=== PATIENT | male | born 1935 | race Caucasian/White ===

== ENCOUNTER 2017-01-30 10:59 | Emergency (ER) | payer OTHER ==
[~2017-01-30] VITALS: Ht 185.4 cm; Wt 61.2 kg
[~2017-01-30 10:59] MED LIST: LEVO50TA7; METO25TA5 PO; SIMV-13; TERA5CAP42; WARF5TAB71
[2017-01-30] MEDS ORDERED: LIDOCAINE HCL 2% TOP JELLY 5ML TOP ONE ×2 (11:19→12:45)
[2017-01-30 11:39] LABS: Basophils # (auto) 0 uL; CONDITION Y; Eosinophils # (auto) 0 uL; Eosinophils % (auto) 0.1 % (0.0-7.0); Hematocrit 41.3 % (41.0-53.0); Hemoglobin 14.3 g/dL (13.5-17.5); Lymphocytes # (auto) 0.4 uL; Lymphocytes % (auto) 2.9 % (10.0-50.0); Mean Corpuscular Hgb Conc. 34.6 g/dL (32.0-36.0); Mean Corpuscular Volume 89.7 fL (80.0-100.0); Mean Platelet Volume 8.3 fL (7.4-10.4); Monocytes # (auto) 0.9 uL; Monocytes % (auto) 6.5 % (0.0-12.0); Neutrophils # (auto) 12.3 uL; Neutrophils % (auto) 90.5 % (37.0-80.0); Platelet Count (auto) 200 10^3/uL (140-450); Red Cell Distribution Width 13.6 % (11.6-16.0); White Blood Cell 13.6 10^3/uL (4.4-10.8)
[2017-01-30 11:54] LABS: INR 1.19 (0.9-1.15); Partial Thromboplastin Time 25.1 sec (22.64-33.71)
[2017-01-30 11:56] LABS: BUN/Creatinine Ratio 13.7; Calcium 9.2 mg/dL (8.5-10.1); Potassium 3.8 mmol/L (3.5-5.1)
[2017-01-30 15:53] VITALS: BP 122/70
== END 2017-01-30 17:09 | disposition home or self-care (01) ==
LOC: EDBD 10:59 → ER 10:59
DX: R33.9 Retention of urine, unspecified (principal); I10 Essential (primary) hypertension; N40.1 Benign prostatic hyperplasia with lower urinary tract symptoms; Z79.01 Long term (current) use of anticoagulants; Z88.6 Allergy status to analgesic agent; Z90.49 Acquired absence of other specified parts of digestive tract
CPT/HCPCS: 36415; 51702; 80048; 85025; 85610; 85730

== ENCOUNTER 2017-02-19 05:41 | Emergency (ER) | payer OTHER ==
[~2017-02-19] VITALS: Ht 167.6 cm; Wt 68.0 kg
[2017-02-19] MEDS ORDERED: SODIUM CHLORIDE 0.9% 250 ML IV ONE (06:52)
[2017-02-19 07:26] LABS: Basophils # (auto) 0 uL; Basophils % (auto) 0.1 % (0.0-2.0); CONDITION Y; Eosinophils # (auto) 0 uL; Eosinophils % (auto) 0.2 % (0.0-7.0); Hematocrit 36.5 % (41.0-53.0); Hemoglobin 12.5 g/dL (13.5-17.5); Lymphocytes # (auto) 0.5 uL; Lymphocytes % (auto) 5.8 % (10.0-50.0); Mean Corpuscular Hemoglobin 31.3 pg (28.0-32.0); Mean Corpuscular Hgb Conc. 34.2 g/dL (32.0-36.0); Mean Corpuscular Volume 91.5 fL (80.0-100.0); Mean Platelet Volume 8.4 fL (7.4-10.4); Monocytes # (auto) 0.6 uL; Monocytes % (auto) 7.2 % (0.0-12.0); Neutrophils # (auto) 6.9 uL; Neutrophils % (auto) 86.7 % (37.0-80.0); Platelet Count (auto) 188 10^3/uL (140-450); Red Cell Distribution Width 14.4 % (11.6-16.0); White Blood Cell 7.9 10^3/uL (4.4-10.8)
[2017-02-19 07:39] LABS: INR 1.1 (0.9-1.15); Partial Thromboplastin Time 23.8 sec (22.64-33.71)
[2017-02-19 07:49] LABS: Albumin 3.6 g/dL (3.4-5.0); BUN/Creatinine Ratio 17.3; Bilirubin, Total 0.9 mg/dL (0.2-1.0); Calcium 8.5 mg/dL (8.5-10.1); Potassium 3.7 mmol/L (3.5-5.1); Total Protein 6.7 g/dL (6.4-8.2)
[2017-02-19 07:55] LABS: Urine Bilirubin Negative (Negative); Urine Blood 2+ /uL (Negative); Urine Color PINK (Yellow); Urine Glucose Normal (Normal); Urine Ketone 1+ (Negative); Urine Nitrite POSITIVE (Negative); Urine RBC 328 /hpf (0 - 3); Urine Urobilinogen Normal (Negative); Urine WBC Clumps PRESENT /hpf (None Seen); Urine pH 7.5 (5.0-8.0)
[2017-02-19] MEDS ORDERED: cefTRIAXone 1GM/50ML D5W 50 ML IV ONE (08:15)
[2017-02-19 11:48] VITALS: BP 115/59
== END 2017-02-19 15:14 | disposition home or self-care (01) ==
LOC: EDBD 05:41 → ER 05:50
DX: T83.9XXA Unspecified complication of genitourinary prosthetic device, implant and graft, initial encounter (principal); R33.9 Retention of urine, unspecified; I10 Essential (primary) hypertension; R31.9 Hematuria, unspecified; N39.0 Urinary tract infection, site not specified; E03.9 Hypothyroidism, unspecified; Z88.0 Allergy status to penicillin; Z88.6 Allergy status to analgesic agent; Z79.899 Other long term (current) drug therapy; Z79.01 Long term (current) use of anticoagulants; I25.10 Atherosclerotic heart disease of native coronary artery without angina pectoris; Z90.49 Acquired absence of other specified parts of digestive tract; Y92.89 Other specified places as the place of occurrence of the external cause; Y99.8 Other external cause status
CPT/HCPCS: 36415; 51702; 71010; 80053; 81001; 83735; 84443; 85025; 85610; 85730; 93005; 94761; 96361; 96365; 99285; J0696; J7030

== ENCOUNTER 2017-06-24 15:52 | Emergency (ER) | payer MEDICARE ==
[~2017-06-24] VITALS: Ht 182.9 cm; Wt 77.1 kg
[2017-06-24 18:41] VITALS: BP 117/75
== END 2017-06-24 17:19 | disposition home or self-care (01) ==
LOC: ER 15:52 → EDBD 15:52 → ER 17:19
DX: N13.9 Obstructive and reflux uropathy, unspecified (principal); N40.0 Benign prostatic hyperplasia without lower urinary tract symptoms; I25.10 Atherosclerotic heart disease of native coronary artery without angina pectoris; I50.9 Heart failure, unspecified; F03.90 Unspecified dementia, unspecified severity, without behavioral disturbance, psychotic disturbance, mood disturbance, and anxiety; E78.5 Hyperlipidemia, unspecified; Z88.0 Allergy status to penicillin; Z79.01 Long term (current) use of anticoagulants; Z90.49 Acquired absence of other specified parts of digestive tract
CPT/HCPCS: 51702

== ENCOUNTER 2017-06-27 06:07 | Emergency (ER) | payer MEDICARE ==
[~2017-06-27] VITALS: Ht 165.1 cm; Wt 72.6 kg
[2017-06-27 08:12] LABS: Basophils # (auto) 0 uL; Basophils % (auto) 0.8 % (0.0-2.0); Eosinophils # (auto) 0.1 uL; Eosinophils % (auto) 1.1 % (0.0-7.0); Hematocrit 39.5 % (41.0-53.0); Hemoglobin 13.6 g/dL (13.5-17.5); Lymphocytes # (auto) 2.2 uL; Lymphocytes % (auto) 34.9 % (10.0-50.0); Mean Corpuscular Hemoglobin 30.9 pg (28.0-32.0); Mean Corpuscular Hgb Conc. 34.4 g/dL (32.0-36.0); Mean Corpuscular Volume 89.8 fL (80.0-100.0); Mean Platelet Volume 8.4 fL (6.9-10.8); Monocytes # (auto) 0.5 uL; Monocytes % (auto) 7.2 % (0.0-12.0); Neutrophils # (auto) 3.6 uL; Platelet Count (auto) 212 10^3/uL (140-450); Red Cell Distribution Width 14.8 % (11.8-14.3); White Blood Cell 6.4 10^3/uL (4.4-10.8)
[2017-06-27 08:40] LABS: B-Type Natriuretic Peptide 183.51 pg/mL (0-100)
[2017-06-27 08:42] LABS: Temperature: 22.4 C (20.0-25.0)
[2017-06-27 08:44] LABS: Albumin 3.6 g/dL (3.4-5.0); Anion Gap 10 (5-15); Aspartate Aminotransferase 27 U/L (15-37); BUN/Creatinine Ratio 22.2; Blood Urea Nitrogen 20 mg/dL (7-18); Calcium 8.9 mg/dL (8.5-10.1); Carbon Dioxide 24 mmol/L (21-32); Chloride 109 mmol/L (98-107); GFR African American 104 mL/min; GFR Non-African American 86 mL/min; Glucose 81 mg/dL (74-106); Potassium 4.1 mmol/L (3.5-5.1); Sodium 143 mmol/L (136-145)
[2017-06-27 08:49] LABS: Urine Bilirubin Negative (Negative); Urine Blood 2+ /uL (Negative); Urine Color Yellow (Yellow); Urine Glucose Normal (Normal); Urine Ketone TRACE (Negative); Urine Mucus FEW (None Seen); Urine Nitrite Negative (Negative); Urine RBC 43 /hpf (0 - 3); Urine Squamous Epithelial Cell FEW /hpf (<5); Urine Urobilinogen Normal (Negative)
[2017-06-27 08:49] LABS: Alkaline Phosphatase 78 U/L (45-117); Bilirubin, Total 0.8 mg/dL (0.2-1.0); INR 1.05 (0.9-1.15); Prothrombin Time 11.5 sec (9.37-12.3); Total Protein 7.2 g/dL (6.4-8.2)
[2017-06-27] MEDS ORDERED: LEVOFLOXACIN 500 MG TAB PO ONE (09:45)
[2017-06-27 13:16] VITALS: BP 125/64
[2017-06-27] MEDS ORDERED: POTA10TA51 PO (14:15)
[2017-06-27] MEDS ORDERED: TAMS0.4C36 PO (14:15)
[2017-06-27] MEDS ORDERED: TERA5CAP42 PO (14:15)
[2017-06-27] MEDS ORDERED: CITA10TA70 PO (14:15)
[2017-06-27] MEDS ORDERED: DIVA250T51 PO (14:15)
[2017-06-27] MEDS ORDERED: FURO20TA PO (14:15)
[2017-06-27] MEDS ORDERED: LORA-655 PO (14:15)
[2017-06-27] MEDS ORDERED: LEVO100T8 PO (14:15)
[2017-06-27] MEDS ORDERED: MULTTAB PO (14:15)
== END 2017-06-27 14:06 | disposition home or self-care (01) ==
LOC: ER 06:07 → EDBD 06:07 → ER 14:06
DX: N39.0 Urinary tract infection, site not specified (principal); N13.9 Obstructive and reflux uropathy, unspecified; I25.10 Atherosclerotic heart disease of native coronary artery without angina pectoris; J44.9 Chronic obstructive pulmonary disease, unspecified; E07.9 Disorder of thyroid, unspecified; E78.5 Hyperlipidemia, unspecified; Z88.0 Allergy status to penicillin; Z88.6 Allergy status to analgesic agent; R41.82 Altered mental status, unspecified; Z90.49 Acquired absence of other specified parts of digestive tract; Z79.01 Long term (current) use of anticoagulants; Z95.2 Presence of prosthetic heart valve
CPT/HCPCS: 36415; 51702; 71010; 80053; 81001; 83880; 84484; 85025; 85610; 85730